=== PATIENT | male | born 1985 | race Caucasian/White ===

== ENCOUNTER 2019-02-01 21:13 | Emergency (ER) | payer BC ==
[2019-02-01 23:05] LABS: APPEARANCE,URINE CLEAR; BILIRUBIN,URINE NEGATIVE (NEGATIVE); COLOR,URINE STRAW; GLUCOSE, URINE NEGATIVE (NEGATIVE); KETONES,URINE NEGATIVE (NEGATIVE); LEUKOCYTE ESTERASE,URINE NEGATIVE (NEGATIVE); NITRITE,URINE NEGATIVE (NEGATIVE); PROTEIN,URINE NEGATIVE (NEGATIVE); URINE SPECIFIC GRAVITY 1.001; UROBILINOGEN,URINE NEGATIVE mg/dL (<2.0)
--- NOTE | 2019-02-02 00:38 | ER Document Report ---
ED Medical Screen (RME) - General Chief Complaint: Urinary Problem Stated Complaint: BLOOD IN URINE Time Seen by Provider: 02/02/19 00:30 Notes: Patient is a 33-year-old male who presents to the emergency department with a chief complaint of blood in urine. Symptoms started 3 days ago. He did have some right flank pain also, but at this time denies a lot of pain. Also notes that he has dark flecks in his urine. He has never had this before. Denies any past renal stones. Exam: No CVA tenderness noted. I have greeted and performed a rapid initial assessment of this patient. A comprehensive ED assessment and evaluation of the patient, analysis of test results and completion of medical decision making process will be conducted by an additional ED providers. - Related Data Allergies/Adverse Reactions: No Known Allergies Allergy (Verified 02/01/19 21:19) Physical Exam - Vital signs Vitals: Temp Pulse Resp BP Pulse Ox 98.0 F 76 16 139/80 H 99 02/01/19 21:34 02/01/19 21:34 02/01/19 21:34 02/01/19 21:34 02/01/19 21:34 Course - Vital Signs Vital signs: Temp Pulse Resp BP Pulse Ox 98.0 F 76 16 139/80 H 99 02/01/19 21:34 02/01/19 21:34 02/01/19 21:34 02/01/19 21:34 02/01/19 21:34 - Laboratory Laboratory results interpreted by me: 02/01/19 21:40 Urine Blood LARGE H
[2019-02-02 01:20] LABS: ABSOLUTE BASOPHILS # (AUTO) 0.1 10^3/uL (0.0-0.2); ABSOLUTE EOSINOPHILS # (AUTO) 0.2 10^3/uL (0.0-0.6); ABSOLUTE LYMPHOCYTES (AUTO) 2.1 10^3/uL (0.5-4.7); ABSOLUTE MONOCYTES (AUTO) 0.4 10^3/uL (0.1-1.4); ABSOLUTE NEUT (AUTO) 2.5 10^3/uL (1.7-8.2); BASOPHILS % (AUTO) 1.3 % (0-2); EOSINOPHILS % (AUTO) 3.9 % (0-6); HEMATOCRIT 41.2 % (37.9-51.0); HEMOGLOBIN 14.1 g/dL (13.5-17.0); MEAN CORPUSCULAR HEMOGLOBIN 31.9 pg (27.0-33.4); MEAN CORPUSCULAR HGB CONC 34.2 g/dL (32.0-36.0); MEAN CORPUSCULAR VOLUME 93 fl (80-97); MONOCYTES % (AUTO) 7.8 % (3-13); PLATELET COUNT 174 10^3/uL (150-450); RED BLOOD COUNT 4.41 10^6/uL (4.35-5.55); TOTAL CELLS COUNTED % (AUTO) 100 %; WHITE BLOOD COUNT 5.3 10^3/uL (4.0-10.5)
--- NOTE | 2019-02-02 01:30 | RADIOLOGY REPORT (SQ) ---
EXAM DESCRIPTION: US RETROPERITONEUM LIMITED COMPLETED DATE/TME: 02/02/2019 00:33 CLINICAL HISTORY: 33 years, Male, blood in urine COMPARISON: None. TECHNIQUE: Transverse longitudinal sonographic images of the kidneys and urinary bladder LIMITATIONS: None. FINDINGS: Right kidney measures 11 x 6 x 5 cm, the left 12 x 7 x 6 cm. No renal calculus, mass, or hydronephrosis. No perinephric fluid collection. Cortical medullary differentiation preserved bilaterally. Urinary bladder is grossly unremarkable. IMPRESSION: Negative exam copyright 2010 [employer]- All Rights Reserved
[2019-02-02 03:31] VITALS: BP 113/64
--- NOTE | 2019-02-02 03:34 | ER Document Report ---
ED General - General Chief Complaint: Urinary Problem Stated Complaint: BLOOD IN URINE Time Seen by Provider: 02/02/19 00:30 Primary Care Provider: DELFIN TRIPATHI MD [NO LOCAL MD] - Follow up in 3-5 days Notes: Patient is a 33-year-old male who presents to the emergency department with a chief complaint of blood in urine. Symptoms started 3 days ago. He did have some right flank pain also, but at this time denies a lot of pain. Also notes that he has dark flecks in his urine. He has never had this before. Denies any past renal stones. Denies excessive masturbation. Denies purulent drainage. - Related Data Allergies/Adverse Reactions: No Known Allergies Allergy (Verified 02/01/19 21:19) Past Medical History - General Information source: Patient - Social History Smoking Status: Unknown if Ever Smoked Family History: Reviewed & Not Pertinent Patient has suicidal ideation: No Patient has homicidal ideation: No Renal/ Medical History: Denies: Hx Peritoneal Dialysis Review of Systems - Review of Systems Notes: REVIEW OF SYSTEMS: CONSTITUTIONAL : Denies recent illness. Denies recent unintentional weight loss. Denies fever, chills, or sweats. EENT: Denies eye, ear, throat, or mouth pain, discharge, or symptoms. Denies nasal or sinus congestion. CARDIOVASCULAR: Denies chest pain. RESPIRATORY: Denies shortness of breath, cough, congestion, difficulty breathing, or wheezing. GASTROINTESTINAL: Denies nausea, vomiting, and diarrhea. Denies abdominal pain. Denies constipation. GENITOURINARY: See HPI MUSCULOSKELETAL: Denies neck and back pain. Denies joint pain or swelling. SKIN: Denies rash, itchiness, or lesions HEMATOLOGIC : Denies easy bruising or bleeding. LYMPHATIC: Denies swollen, painful, enlarged glands. NEUROLOGICAL: Denies no numbness or tingling denies weakness. Denies headache. Denies altered mental status. Denies alteration in speech. PSYCHIATRIC: Denies stress, anxiety, alteration in sleep patterns, or depression. All other systems reviewed and negative. Physical Exam - Vital signs Vitals: Temp Pulse Resp BP Pulse Ox 98.0 F 76 16 139/80 H 99 02/01/19 21:34 02/01/19 21:34 02/01/19 21:34 02/01/19 21:34 02/01/19 21:34 - Notes Notes: PHYSICAL EXAMINATION: GENERAL: Appears well, healthy, well-nourished, no acute distress. HEAD: Normocephalic, atraumatic. EYES: PERRL, conjunctiva normal, all extraocular movements intact, sclera nonicteric ENT: Moist mucous membranes. NECK: Supple, no noticeable swelling, redness, rash. Normal range of motion. LUNGS: Equal breath sounds bilaterally and clear to auscultation. No wheezes rales or rhonchi. CARDIOVASCULAR: S1-S2, regular rate, regular rhythm. Radial pulses 2+, normal. ABDOMEN: Normoactive bowel sounds. Soft, nontender, no guarding, no rebound tenderness, and no masses palpated. EXTREMITIES: Normal strength and range of motion, no pitting or edema. No cyanosis. NEUROLOGICAL: Moves all extremities upon command. Strength 5/5 in all extremities. PSYCH: Normal mood, normal affect. SKIN: Warm, dry. No rash, lesions, ulcerations noted. Normal skin turgor. BACK: CVA tenderness noted on left side. Course - Re-evaluation Re-evalutation: 02/02/19 03:34 Patient's ultrasound does not show any active stone. He does have blood in his urine. Patient is not anemic. There are no leukocytes in his urine, therefore I do not suspect an infected stone. He will be referred to urology for follow- up. He is in agreement with this plan. Verbal discharge instructions were given to the patient. They verbalized understanding. They are stable for discharge. - Vital Signs Vital signs: Temp Pulse Resp BP Pulse Ox 97.3 F 72 16 113/64 99 02/02/19 03:29 02/02/19 03:29 02/01/19 21:34 02/02/19 03:29 02/02/19 03:29 - Laboratory Result Diagrams: 02/02/19 00:55 Laboratory results interpreted by me: 02/01/19 21:40 Urine Blood LARGE H Discharge - Discharge Clinical Impression: Hematuria Qualifiers: Hematuria type: unspecified type Qualified Code(s): R31.9 - Hematuria, unspecified Condition: Stable Disposition: HOME, SELF-CARE Additional Instructions: You were seen today in the emergency department for blood in your urine. Your ultrasound was normal. There is no stone noted. Please follow-up with urology in regards to this issue. If you have worsening symptoms, continue to bleed, or have any symptoms that are worrisome to you, please return to the emergency department. Referrals: DELFIN TRIPATHI MD [NO LOCAL MD] - Follow up in 3-5 days
== END 2019-02-02 03:57 | disposition home or self-care (01) ==
LOC: ER 21:13
DX: R31.0 Gross hematuria (principal); R10.9 Unspecified abdominal pain
CPT/HCPCS: 36415; 76775; 81001; 85025; 99284